=== PATIENT | female | born 1965 | race Caucasian/White ===

== ENCOUNTER 2019-04-22 11:52 | Observation (INO) ==
[2019-04-22 12:40] LABS: Basophils % 0.6 %; Eosinophils # 0.2 K/mcL (0.0-0.6); Eosinophils % 3.4 %; Hematocrit 33.1 % (35.3-44.9); Hemoglobin 10.3 g/dL (11.5-15.4); Immature Granulocytes % 0.3 % (0-4); Lymphocytes # 1.5 K/mcL (0.6-4.6); Lymphocytes % 23.3 %; Mean Corpuscular HGB Conc 31.1 g/dL (31.6-35.5); Mean Corpuscular Hemoglobin 22.2 pg (28.0-33.3); Mean Corpuscular Volume 71.2 fL (83.0-100.0); Mean Platelet Volume 11.8 fL (9.4-12.4); Monocytes # 0.6 K/mcL (0.0-1.3); Monocytes % 9.5 %; Neutrophils # 4.1 K/mcL (1.6-8.9); Platelet Count 385 K/mcL (140-400); Red Blood Count 4.65 M/mcL (3.82-4.97); Red Cell Distribution Width 17.6 % (11.5-14.5); Segmented Neutrophils % 62.9 %; White Blood Count 6.6 K/mcL (4.3-11.1)
[2019-04-22 12:49] LABS: INR 1.2; Prothrombin Time 13.6 Seconds (9.4-12.1)
[2019-04-22 12:52] LABS: Activated Partial Thrombo Time 39.3 Seconds (26.0-36.0)
[2019-04-22 13:00] LABS: Acetaminophen < 10 mcg/mL (10-20); Alanine Aminotransferase 420 Units/L (7-52); Albumin 3.7 g/dL (3.5-5.7); Alkaline Phosphatase 117 Units/L (34-104); Aspartate Amino Transferase 644 Units/L (13-39); BUN/Creatinine Ratio 8 (6-26); Bilirubin,Total 5.5 mg/dL (0.3-1.0); Blood Urea Nitrogen 6 mg/dL (6-20); Calcium 9.1 mg/dL (8.6-10.3); Carbon Dioxide 24 mEq/L (23-29); Chloride 104 mEq/L (98-107); Globulin 3.8 g/dL (2.4-3.5); Glucose 96 mg/dL (70-105); Lipase 36 Units/L (11-82); Osmolality,Calculated 275 (280-300); Potassium 3.9 mEq/L (3.5-5.1); Sodium 134 mEq/L (136-145); Total Protein 7.5 g/dL (6.4-8.9); eGFR For African Americans > 60 (> 60); eGFR For Non-African Americans > 60 (> 60)
[2019-04-22 14:21] LABS: Hepatitis B Surface Antigen Nonreactive (Nonreactive)
[2019-04-22 14:50] LABS: Hepatitis B Core IgM Nonreactive (Nonreactive)
[2019-04-22 14:51] LABS: Hepatitis C Virus Antibody Nonreactive (Nonreactive)
[2019-04-22 14:52] LABS: Hepatitis A Antibody IgM Nonreactive (Nonreactive)
[2019-04-23] MEDS ORDERED: Naloxone 0.4 MG/ML INJ IVP PRN (04:25)
[2019-04-23 04:41] LABS: Hematocrit 30.6 % (35.3-44.9); Hemoglobin 9.3 g/dL (11.5-15.4); Mean Corpuscular HGB Conc 30.4 g/dL (31.6-35.5); Mean Corpuscular Hemoglobin 22.1 pg (28.0-33.3); Mean Corpuscular Volume 72.7 fL (83.0-100.0); Mean Platelet Volume 12.1 fL (9.4-12.4); Platelet Count 319 K/mcL (140-400); Red Blood Count 4.21 M/mcL (3.82-4.97); Red Cell Distribution Width 17.8 % (11.5-14.5); White Blood Count 6.5 K/mcL (4.3-11.1)
[2019-04-23 07:50] LABS: INR 1.2; Prothrombin Time 13.8 Seconds (9.4-12.1)
[2019-04-23] MEDS ORDERED: Ringers Solution, Lactated 1,000 ML IVC SCH (09:15)
[2019-04-23 09:23] LABS: Alanine Aminotransferase 392 Units/L (7-52); Albumin 3.5 g/dL (3.5-5.7); Albumin/Globulin Ratio 0.9 (1.1-2.2); Alkaline Phosphatase 121 Units/L (34-104); Aspartate Amino Transferase 656 Units/L (13-39); BUN/Creatinine Ratio 10 (6-26); Bilirubin,Direct 3.6 mg/dL (0.0-0.2); Bilirubin,Indirect 2.7 mg/dL (0.0-1.0); Bilirubin,Total 6.3 mg/dL (0.3-1.0); Blood Urea Nitrogen 7 mg/dL (6-20); Calcium 9.3 mg/dL (8.6-10.3); Carbon Dioxide 21 mEq/L (23-29); Chloride 103 mEq/L (98-107); Globulin 3.8 g/dL (2.4-3.5); Glucose 80 mg/dL (70-105); Osmolality,Calculated 277 (280-300); Sodium 135 mEq/L (136-145); Total Protein 7.3 g/dL (6.4-8.9); eGFR For African Americans > 60 (> 60); eGFR For Non-African Americans > 60 (> 60)
[2019-04-23 12:01] VITALS: BP 144/76
[2019-04-25 08:45] LABS: ANA IgG by ELISA DETECTED (None Detected)
[2019-04-25 13:14] LABS: F-Actin (sm muscle) Ab IgG 62 Units (0-19)
[2019-04-26 12:57] LABS: Smooth Muscle Ab Titer IgG <1:20 (<1:20)
[2019-04-26 17:42] LABS: ANA HEp-2 IgG IFA DETECTED (<1:80); Anti Nuclear Ab Pattern CENTROMERE; Anti Nuclear Ab Pattern 2 SPECKLED
== END 2019-04-23 13:16 | disposition home or self-care (01) ==
LOC: EMEROOARM 11:52 → 2ANU 11:52 → SUATTDRO 20:06 → 2ANU 20:33
PROVIDERS: ADMIT Family Medicine; ATTEND Internal Medicine